=== PATIENT | male | born 1940 | race African-American/Black ===

== ENCOUNTER 2016-09-16 19:03 | Emergency (ER) | payer MEDICARE, MEDICAID ==
[~2016-09-16] VITALS: Ht 172.7 cm; Wt 82.0 kg
[~2016-09-16 19:03] MED LIST: ALBU6.7H INH; AMLO10TA4 PO; BENA20TA3 PO; HYDR-4005 PO; PROT20 PO
[2016-09-16 19:34] VITALS: BP 142/72
[2016-09-16 20:15] LABS: BASOPHILS % 0.6 % (0.0-2.0); EOSINOPHILS % 1.4 % (0.0-5.0); HEMATOCRIT. 35.2 % (42.0-52.0); HEMOGLOBIN. 11.8 g/dL (14.0-18.0); LYMPHOCYTES % 49.4 % (20.0-50.0); MEAN CORPUSCULAR HEMOGLOBIN 30.1 pg (28.0-32.0); MEAN CORPUSCULAR HGB CONC 33.5 g/dL (31.0-37.0); MEAN CORPUSCULAR VOLUME 89.9 fL (80.0-94.0); MEAN PLATELET VOLUME 7.6 fl (7.4-10.4); MONOCYTES % 9.7 % (2.0-8.0); NEUTROPHILS % 38.9 % (40.0-76.0); PLATELET 202 x1000/uL (130-400); RED BLOOD CELL COUNT 3.92 mill/uL (4.7-6.1); RED CELL DISTRIBUTION WIDTH 15.2 % (11.6-14.6); WHITE BLOOD COUNT 8.6 x1000/uL (4.5-11.0)
[2016-09-16 20:44] LABS: CLARITY URINE CLEAR (CLEAR); COLOR URINE YELLOW (YELLOW); GLUCOSE URINE NEGATIVE (NEGATIVE); KETONES URINE NEGATIVE (NEGATIVE); LEUKOCYTE ESTERASE URINE TRACE (NEGATIVE); NITRITE URINE NEGATIVE (NEGATIVE); OCCULT BLOOD URINE NEGATIVE (NEGATIVE); PH URINE 6.5 (4.5-8.0); PROTEIN URINE NEGATIVE (NEGATIVE); SPECIFIC GRAVITY URINE 1.014 (1.005-1.030); UROBILINOGEN URINE 0.2 E.U./dL (0.2-1.0)
[2016-09-16 20:55] LABS: BACTERIA URINE TRACE; RBC URINE NONE SEEN /hpf (0-2); SQUAMOUS EPITHELIAL CELL URINE RARE /lpf (RARE/1+); WBC URINE 0-2 /hpf (0-2)
== END 2016-09-16 22:15 | disposition home or self-care (01) ==
LOC: ER 21:43
DX: J44.1 Chronic obstructive pulmonary disease with (acute) exacerbation (principal); I10 Essential (primary) hypertension; Z79.899 Other long term (current) drug therapy; Z87.01 Personal history of pneumonia (recurrent)
CPT/HCPCS: 36415; 71020; 81001; 85025; 99285

== ENCOUNTER 2016-10-16 18:38 | Emergency (ER) | payer MEDICARE, MEDICAID | END 2016-10-16 20:50 | disposition left against medical advice (07) | LOC: ER 18:39 | DX: Z53.21 Procedure and treatment not carried out due to patient leaving prior to being seen by health care provider (principal) ==

== ENCOUNTER 2016-11-14 20:53 | Emergency (ER) | payer MEDICARE, MEDICAID ==
[~2016-11-14] VITALS: Ht 172.7 cm; Wt 84.0 kg
[2016-11-14] MEDS ORDERED: IBUPROFEN 600MG TABLET PO ONE (22:45)
[2016-11-14 23:18] LABS: CLARITY URINE CLEAR (CLEAR); COLOR URINE YELLOW (YELLOW); GLUCOSE URINE NEGATIVE (NEGATIVE); KETONES URINE NEGATIVE (NEGATIVE); LEUKOCYTE ESTERASE URINE TRACE (NEGATIVE); NITRITE URINE NEGATIVE (NEGATIVE); OCCULT BLOOD URINE NEGATIVE (NEGATIVE); PROTEIN URINE NEGATIVE (NEGATIVE); SPECIFIC GRAVITY URINE 1.013 (1.005-1.030); UROBILINOGEN URINE 0.2 E.U./dL (0.2-1.0)
[2016-11-15 00:55] VITALS: BP 154/79
== END 2016-11-15 01:01 | disposition home or self-care (01) ==
LOC: ER 11-15 00:29
DX: R30.0 Dysuria (principal); R10.30 Lower abdominal pain, unspecified; N40.0 Benign prostatic hyperplasia without lower urinary tract symptoms; J44.9 Chronic obstructive pulmonary disease, unspecified; I10 Essential (primary) hypertension; Z87.891 Personal history of nicotine dependence
CPT/HCPCS: 81001; 99283

== ENCOUNTER 2017-01-04 15:14 | Emergency (ER) | payer MEDICARE, MEDICAID ==
[~2017-01-04] VITALS: Ht 172.7 cm; Wt 75.0 kg
[2017-01-04] MEDS: ASPIRIN 81MG TABLET PO ONE (16:55)
[2017-01-04] MEDS: SODIUM CHLORIDE 0.9% 1000ML BAG (SEPSIS BOLUS) IV ONE (16:55)
[2017-01-04] MEDS: ONDANSETRON HCL 4MG/2ML VIAL IV STA (16:56)
[2017-01-04] MEDS: LEVOFLOXACIN 750MG PREMIX 150 ML IV ONE (16:57)
[2017-01-04 17:01] LABS: BASOPHILS % 0.6 % (0.0-2.0); EOSINOPHILS % 0.4 % (0.0-5.0); HEMATOCRIT. 33.1 % (42.0-52.0); LYMPHOCYTES % 44.4 % (20.0-50.0); MEAN CORPUSCULAR HEMOGLOBIN 30.3 pg (28.0-32.0); MEAN CORPUSCULAR VOLUME 90.9 fL (80.0-94.0); MEAN PLATELET VOLUME 7.1 fl (7.4-10.4); MONOCYTES % 9.8 % (2.0-8.0); NEUTROPHILS % 44.8 % (40.0-76.0); PLATELET 240 x1000/uL (130-400); RED BLOOD CELL COUNT 3.64 mill/uL (4.7-6.1); RED CELL DISTRIBUTION WIDTH 14.7 % (11.6-14.6)
[2017-01-04 17:04] LABS: CHLORIDE 99 mEq/L (98-107)
[2017-01-04 17:07] LABS: INR 1.1; PARTIAL THROMBOPLASTIN TIME 25.6 sec (24.0-34.0)
[2017-01-04 17:13] LABS: CARBON DIOXIDE 30 mEq/L (21-32)
[2017-01-04 17:15] LABS: TROPONIN I 0.04 ng/mL (0.00-0.04)
[2017-01-04 18:45] LABS: CLARITY URINE CLEAR (CLEAR); COLOR URINE YELLOW (YELLOW); GLUCOSE URINE NEGATIVE (NEGATIVE); KETONES URINE NEGATIVE (NEGATIVE); LEUKOCYTE ESTERASE URINE NEGATIVE (NEGATIVE); NITRITE URINE NEGATIVE (NEGATIVE); OCCULT BLOOD URINE NEGATIVE (NEGATIVE); PROTEIN URINE NEGATIVE (NEGATIVE); SPECIFIC GRAVITY URINE 1.008 (1.005-1.030); UROBILINOGEN URINE 0.2 E.U./dL (0.2-1.0)
[2017-01-04 21:45] VITALS: BP 146/76
== END 2017-01-04 22:35 | disposition home or self-care (01) ==
LOC: ER 15:59 → CANBEDREQ 23:10
DX: R68.83 Chills (without fever) (principal); R53.1 Weakness; I10 Essential (primary) hypertension; E78.00 Pure hypercholesterolemia, unspecified; J44.9 Chronic obstructive pulmonary disease, unspecified; Z87.01 Personal history of pneumonia (recurrent)
CPT/HCPCS: 36415; 71010; 80053; 81003; 83605; 84484; 85025; 85610; 85730; 86850; 86900; 86901; 87040; 87086; 93005; 96365; 96375; 99285; J1956; J2405; J7030

== ENCOUNTER 2017-01-25 15:30 | Inpatient (IN) | payer MEDICARE, MEDICAID ==
[~2017-01-25] VITALS: Ht 172.7 cm; Wt 76.7 kg
[2017-01-25] MEDS ORDERED: ONDANSETRON HCL 4MG/2ML VIAL IV STA (17:00)
[2017-01-25] MEDS ORDERED: MORPHINE SULFATE 4 MG/ML CPJ (NOT FOR IM USE) IV STA (17:00)
[2017-01-25] MEDS ORDERED: SODIUM CHLORIDE 0.9% 1,000 ML IV ONE (17:00)
[2017-01-25] MEDS ORDERED: SODIUM CHLORIDE 0.9% 1000ML BAG (SEPSIS BOLUS) IV ONE (17:15)
[2017-01-25] MEDS ORDERED: CEFTRIAXONE 1 G PREMIX 50 ML IV ONE (17:15)
[2017-01-25 17:23] LABS: CHLORIDE 103 mEq/L (98-107)
[2017-01-25 17:26] LABS: BASOPHILS % 0.6 % (0.0-2.0); CARBON DIOXIDE 31 mEq/L (21-32); EOSINOPHILS % 1.2 % (0.0-5.0); HEMATOCRIT. 32.3 % (42.0-52.0); HEMOGLOBIN. 10.9 g/dL (14.0-18.0); LYMPHOCYTES % 38.9 % (20.0-50.0); MEAN CORPUSCULAR HEMOGLOBIN 30.6 pg (28.0-32.0); MEAN CORPUSCULAR VOLUME 90.6 fL (80.0-94.0); MEAN PLATELET VOLUME 7.1 fl (7.4-10.4); MONOCYTES % 11.4 % (2.0-8.0); NEUTROPHILS % 47.9 % (40.0-76.0); PLATELET 209 x1000/uL (130-400); RED BLOOD CELL COUNT 3.56 mill/uL (4.7-6.1); RED CELL DISTRIBUTION WIDTH 15.2 % (11.6-14.6)
[2017-01-25 20:31] LABS: CLARITY URINE CLEAR (CLEAR); COLOR URINE YELLOW (YELLOW); GLUCOSE URINE NEGATIVE (NEGATIVE); KETONES URINE NEGATIVE (NEGATIVE); LEUKOCYTE ESTERASE URINE TRACE (NEGATIVE); NITRITE URINE NEGATIVE (NEGATIVE); OCCULT BLOOD URINE NEGATIVE (NEGATIVE); PROTEIN URINE NEGATIVE (NEGATIVE); SPECIFIC GRAVITY URINE 1.016 (1.005-1.030)
[2017-01-25] MEDS ORDERED: CEFTRIAXONE SODIUM 1 G/VIAL IM ONE (22:00)
[2017-01-25] MEDS ORDERED: LIDOCAINE HCL 1% 20ML VIAL (Pyxis) INJ ONE (23:22)
[2017-01-25] MEDS ORDERED: IPRATROPIUM/ALBUTEROL 0.5-3(2.5)MG/3ML NEB INH PRN (23:30)
[2017-01-25] MEDS ORDERED: ACETAMINOPHEN 325MG TABLET PO PRN (23:30)
[2017-01-25] MEDS ORDERED: ONDANSETRON HCL 4MG/2ML VIAL IV PRN (23:30)
[2017-01-25] MEDS ORDERED: CLONIDINE 0.1MG TABLET PO PRN (23:30)
[2017-01-25] MEDS ORDERED: LORAZEPAM 0.5MG TABLET PO PRN (23:30)
[2017-01-25] MEDS ORDERED: GUAIFENESIN 200MG/10ML SUGAR FREE UDC PO PRN (23:30)
[2017-01-25] MEDS ORDERED: DOCUSATE SODIUM 100MG CAPSULE PO PRN (23:30)
[2017-01-26] VITALS (7 sets, daily range): BP systolic 132–152; BP diastolic 68–81
[2017-01-26] MEDS ORDERED: LOSA1TAB33 PO (00:35)
[2017-01-26] MEDS ORDERED: MELO-106 PO (00:35)
[2017-01-26] MEDS: HYDROCODONE/APAP 7.5/325MG 1 TAB TABLET PO PRN ×4 (01:10→23:28)
[2017-01-26] MEDS ORDERED: MVI, ADULT NO.1 10 ML, FOLIC ACID 1 MG, THIAMINE HCL 100 MG in SODIUM CHLORIDE 0.9% 1,0... IV SCH ×4 (02:00)
[2017-01-26 03:07] LABS: VITAMIN B12 SERUM 1364 pg/mL (211-911)
[2017-01-26] MEDS ORDERED: TAMS-11 PO (04:48)
[2017-01-26 06:18] LABS: BASOPHILS % 0.3 % (0.0-2.0); EOSINOPHILS % 2.2 % (0.0-5.0); HEMOGLOBIN. 10.8 g/dL (14.0-18.0); LYMPHOCYTES % 43.8 % (20.0-50.0); MEAN CORPUSCULAR HEMOGLOBIN 30.7 pg (28.0-32.0); MEAN CORPUSCULAR VOLUME 91.4 fL (80.0-94.0); MEAN PLATELET VOLUME 7.4 fl (7.4-10.4); MONOCYTES % 11.8 % (2.0-8.0); NEUTROPHILS % 41.9 % (40.0-76.0); PLATELET 197 x1000/uL (130-400); RED CELL DISTRIBUTION WIDTH 15.6 % (11.6-14.6)
[2017-01-26] MEDS: PANTOPRAZOLE 40MG DR TABLET PO SCH (06:33)
[2017-01-26 07:01] LABS: CHLORIDE 105 mEq/L (98-107)
[2017-01-26 07:08] LABS: CARBON DIOXIDE 30 mEq/L (21-32)
[2017-01-26] MEDS ORDERED: LIDOCAINE HCL 1% 20ML VIAL (Pyxis) INJ ONE (07:41)
[2017-01-26] MEDS ORDERED: SODIUM BICARBONATE 4% (2.4MEQ) 5ML VIAL IV ONE (07:41)
[2017-01-26] MEDS: HYDROCHLOROTHIAZIDE 12.5MG CAPSULE PO SCH (08:29)
[2017-01-26] MEDS: TAMSULOSIN HCL 0.4MG SR CAPSULE PO SCH (08:29)
[2017-01-26] MEDS: LOSARTAN POTASSIUM 100 MG TABLET PO SCH (08:30)
[2017-01-26] MEDS: MELOXICAM 7.5MG TABLET PO SCH (08:30)
[2017-01-26] MEDS: BENAZEPRIL 20MG TABLET PO SCH (08:30)
[2017-01-26] MEDS: AMLODIPINE 10MG TABLET PO SCH (08:30)
[2017-01-26] MEDS ORDERED: PANTOPRAZOLE SODIUM 20 MG PO SCH (09:00)
[2017-01-26] MEDS ORDERED: MEDICATION NOT ON FORMULARY EA (Meloxicam 1 TAB) PO SCH (09:00)
[2017-01-26] MEDS: CEFTRIAXONE 1 G PREMIX 50 ML IV SCH (22:34)
[2017-01-27] VITALS: BP 133/70
[2017-01-27 04:00] VITALS: BP 123/79
[2017-01-27] MEDS: PANTOPRAZOLE 40MG DR TABLET PO SCH (05:59)
[2017-01-27] MEDS: HYDROCODONE/APAP 7.5/325MG 1 TAB TABLET PO PRN ×4 (06:00→20:28)
[2017-01-27 08:00] VITALS: BP 127/71
[2017-01-27] MEDS: MELOXICAM 7.5MG TABLET PO SCH (08:01)
[2017-01-27] MEDS: BENAZEPRIL 20MG TABLET PO SCH (08:01)
[2017-01-27] MEDS: LOSARTAN POTASSIUM 100 MG TABLET PO SCH (08:01)
[2017-01-27] MEDS: HYDROCHLOROTHIAZIDE 12.5MG CAPSULE PO SCH (08:02)
[2017-01-27] MEDS: AMLODIPINE 10MG TABLET PO SCH (08:02)
[2017-01-27] MEDS: TAMSULOSIN HCL 0.4MG SR CAPSULE PO SCH (08:02)
[2017-01-27 12:00] VITALS: BP 132/72
[2017-01-27 15:59] VITALS: BP 139/79
[2017-01-27 20:00] VITALS: BP 127/77
[2017-01-28] VITALS: BP 121/65
[2017-01-28] MEDS: HYDROCODONE/APAP 7.5/325MG 1 TAB TABLET PO PRN ×3 (01:18→12:09)
[2017-01-28] MEDS: CEFTRIAXONE 1 G PREMIX 50 ML IV SCH (01:30)
[2017-01-28 04:00] VITALS: BP 139/73
[2017-01-28] MEDS: PANTOPRAZOLE 40MG DR TABLET PO SCH (06:59)
[2017-01-28 08:00] VITALS: BP 138/76
[2017-01-28] MEDS: TAMSULOSIN HCL 0.4MG SR CAPSULE PO SCH (08:47)
[2017-01-28] MEDS: HYDROCHLOROTHIAZIDE 12.5MG CAPSULE PO SCH (08:47)
[2017-01-28] MEDS: BENAZEPRIL 20MG TABLET PO SCH (08:47)
[2017-01-28] MEDS: LOSARTAN POTASSIUM 100 MG TABLET PO SCH (08:47)
[2017-01-28] MEDS: MELOXICAM 7.5MG TABLET PO SCH (08:48)
[2017-01-28] MEDS: AMLODIPINE 10MG TABLET PO SCH (08:48)
[2017-01-28 12:00] VITALS: BP 140/82
[2017-01-28 14:04] VITALS: BP 140/82
== END 2017-01-28 14:20 | disposition home or self-care (01) | DRG 690 ==
LOC: ER 18:12 → 6EST 22:05 → ENRESERV 22:22 → 6EST 01-26 03:24
PROVIDERS: ADMIT Internal Medicine; ATTEND Internal Medicine
PROC: 02HV33Z Insertion of Infusion Device into Superior Vena Cava, Percutaneous Approach (ICD-10-PCS; principal; 2017-01-26)
PROC: B5181ZA Fluoroscopy of Superior Vena Cava using Low Osmolar Contrast, Guidance (ICD-10-PCS; 2017-01-26)
PROC: B548ZZA Ultrasonography of Superior Vena Cava, Guidance (ICD-10-PCS; 2017-01-26)
DX: N30.00 Acute cystitis without hematuria (principal); I11.0 Hypertensive heart disease with heart failure; I42.9 Cardiomyopathy, unspecified; I50.9 Heart failure, unspecified; D64.9 Anemia, unspecified; F41.9 Anxiety disorder, unspecified; G89.29 Other chronic pain; J44.9 Chronic obstructive pulmonary disease, unspecified; K29.50 Unspecified chronic gastritis without bleeding; M47.897 Other spondylosis, lumbosacral region; M54.5 Low back pain; E78.00 Pure hypercholesterolemia, unspecified; Z87.01 Personal history of pneumonia (recurrent); Z87.891 Personal history of nicotine dependence; Z99.81 Dependence on supplemental oxygen; Z79.899 Other long term (current) drug therapy; Z85.51 Personal history of malignant neoplasm of bladder
CPT/HCPCS: 36415; 36569; 70551; 71010; 74176; 76937; 77001; 80053; 81001; 82040; 82270; 82607; 82652; 83605; 83690; 84484; 85025; 87040; 87086; 93005; 94664; 96365; 96372; 96375; 99285; C1725; C1893; J0696; J2270; J2405; J3411; J3490; J7030; J7050; J7620

== ENCOUNTER 2017-12-02 11:50 | Emergency (ER) | payer MEDICARE, MEDICAID ==
[~2017-12-02] VITALS: Ht 170.2 cm; Wt 80.0 kg
[~2017-12-02 11:50] MED LIST changes: +BENA20TA10 PO; -BENA20TA3 PO; +LOSA1TAB40 PO; +MELO-106 PO; +TAMS-11 PO
[2017-12-02 15:06] LABS: CLARITY URINE CLEAR (CLEAR); COLOR URINE YELLOW (YELLOW); KETONES URINE NEGATIVE (NEGATIVE); LEUKOCYTE ESTERASE URINE NEGATIVE (NEGATIVE); NITRITE URINE NEGATIVE (NEGATIVE); OCCULT BLOOD URINE NEGATIVE (NEGATIVE); PH URINE 5.5 (4.5-8.0); PROTEIN URINE 1+ (NEGATIVE); SPECIFIC GRAVITY URINE 1.015 (1.005-1.030); UROBILINOGEN URINE 0.2 E.U./dL (0.2-1.0)
[2017-12-02 15:19] LABS: *AMPHETAMINES SCREEN URINE NEGATIVE (NEGATIVE); *BARBITURATES SCREEN URINE NEGATIVE (NEGATIVE)
[2017-12-02 15:20] LABS: *BENZODIAZEPINES SCREEN URINE NEGATIVE (NEGATIVE); *COCAINE SCREEN URINE NEGATIVE (NEGATIVE); CANNABINOID URINE SCREEN NEGATIVE (NEGATIVE); METHADONE URINE SCREEN NEGATIVE (NEGATIVE); OPIATES URINE SCREEN PRESUMTIVE POSITIVE (NEGATIVE); PHENCYCLIDINE URINE SCREEN NEGATIVE (NEGATIVE)
[2017-12-02 17:10] LABS: BASOPHILS % 0.6 % (0.0-2.0); EOSINOPHILS % 1.6 % (0.0-5.0); HEMATOCRIT. 33.6 % (42.0-52.0); HEMOGLOBIN. 11.3 g/dL (14.0-18.0); LYMPHOCYTES % 34.8 % (20.0-50.0); MEAN CORPUSCULAR HEMOGLOBIN 30.8 pg (28.0-32.0); MEAN CORPUSCULAR VOLUME 91.1 fL (80.0-94.0); MEAN PLATELET VOLUME 7.6 fl (7.4-10.4); MONOCYTES % 9.2 % (2.0-8.0); NEUTROPHILS % 53.8 % (40.0-76.0); PLATELET 226 x1000/uL (130-400); RED BLOOD CELL COUNT 3.68 mill/uL (4.7-6.1)
[2017-12-02 17:15] LABS: CHLORIDE 100 mEq/L (98-107)
[2017-12-02] MEDS ORDERED: ACETAMINOPHEN 325MG TABLET PO ONE (17:15)
[2017-12-02 17:16] LABS: INR 1.1; PROTHROMBIN TIME 11.1 sec (9.4-11.6)
[2017-12-02] MEDS ORDERED: HYDROCODONE/ACETAMINOPHEN 5/325MG TABLET PO ONE (20:30)
[2017-12-03] MEDS ORDERED: IPRATROPIUM/ALBUTEROL 0.5-3(2.5)MG/3ML NEB HHN SCH (09:00)
[2017-12-03] MEDS ORDERED: HYDROCODONE/ACETAMINOPHEN 5/325MG TABLET PO PRN (09:01)
[2017-12-03 11:03] VITALS: BP 163/70
== END 2017-12-03 11:06 | disposition home or self-care (01) ==
LOC: ER 13:01 → SUPCPDRO 22:11 → CANRESERV 12-03 09:16 → ENRESERV 12-03 09:16 → CANBEDREQ 12-03 10:14 → ER 12-03 11:06
DX: J44.1 Chronic obstructive pulmonary disease with (acute) exacerbation (principal); I11.0 Hypertensive heart disease with heart failure; N40.1 Benign prostatic hyperplasia with lower urinary tract symptoms; R07.89 Other chest pain; R33.8 Other retention of urine; I50.9 Heart failure, unspecified; E86.0 Dehydration; D64.9 Anemia, unspecified; R80.9 Proteinuria, unspecified; R74.0 Nonspecific elevation of levels of transaminase and lactic acid dehydrogenase [LDH]; F11.10 Opioid abuse, uncomplicated; Z99.81 Dependence on supplemental oxygen; Z79.899 Other long term (current) drug therapy
CPT/HCPCS: 36415; 51702; 71045; 80053; 80305; 81003; 83036; 83880; 84153; 84484; 85025; 85610; 87040; 87086; 93005; 94640; 99285; J7620; G0103

== ENCOUNTER 2017-12-16 05:11 | Emergency (ER) | payer MEDICARE, MEDICAID ==
[~2017-12-16] VITALS: Ht 172.7 cm; Wt 77.0 kg
[~2017-12-16 05:11] MED LIST changes: -BENA20TA10 PO; +BENA20TA3 PO
[2017-12-16] MEDS ORDERED: CLONIDINE 0.1MG TABLET PO ONE (07:00)
[2017-12-16] MEDS ORDERED: KETOROLAC 60MG/2ML VIAL IM ONE (07:00)
[2017-12-16] MEDS ORDERED: ACETAMINOPHEN 325MG TABLET PO ONE (07:00)
[2017-12-16 07:29] VITALS: BP 162/78
== END 2017-12-16 08:47 | disposition home or self-care (01) ==
LOC: ER 05:57
DX: F11.23 Opioid dependence with withdrawal (principal); M19.90 Unspecified osteoarthritis, unspecified site; M79.604 Pain in right leg; M79.605 Pain in left leg; J44.9 Chronic obstructive pulmonary disease, unspecified; I10 Essential (primary) hypertension; E78.00 Pure hypercholesterolemia, unspecified; Z87.891 Personal history of nicotine dependence; Z98.890 Other specified postprocedural states; Z79.899 Other long term (current) drug therapy
CPT/HCPCS: 96372; 99283; J1885; J7030

== ENCOUNTER → 2018-02-01 | Outpatient (CLI) | payer MEDICARE, MEDICAID ==
[~2018-02-01] MED LIST changes: +BENA20TA10 PO; -BENA20TA3 PO
[2018-02-01 09:01] LABS: BASOPHILS % 0.4 % (0.0-2.0); EOSINOPHILS % 2.3 % (0.0-5.0); HEMOGLOBIN. 12.4 g/dL (14.0-18.0); MEAN CORPUSCULAR HEMOGLOBIN 30.3 pg (28.0-32.0); MEAN CORPUSCULAR VOLUME 92.7 fL (80.0-94.0); MEAN PLATELET VOLUME 7.9 fl (7.4-10.4); MONOCYTES % 8.5 % (2.0-8.0); NEUTROPHILS % 41.8 % (40.0-76.0); PLATELET 227 x1000/uL (130-400); RED CELL DISTRIBUTION WIDTH 16.5 % (11.6-14.6)
[2018-02-01 09:24] LABS: CHLORIDE 100 mEq/L (98-107)
[2018-02-01 09:34] LABS: LDL CHOLESTEROL 129 mg/dL (5-100)
[2018-02-01 09:36] LABS: HDL CHOLESTEROL 74 mg/dL (40-59)
[2018-02-01 10:25] LABS: VITAMIN B12 SERUM 1248 pg/mL (211-911)
[2018-02-01 10:30] LABS: FOLIC ACID (FOLATE) SERUM > 20.00 ng/mL (>5.38)
[2018-02-01 13:47] LABS: FERRITIN 86 ng/mL (22-322)
== END | disposition home or self-care (01) ==
LOC: LAB 08:03
PROVIDERS: ATTEND Specialist
DX: I11.0 Hypertensive heart disease with heart failure (principal); I50.9 Heart failure, unspecified; E55.9 Vitamin D deficiency, unspecified; E78.2 Mixed hyperlipidemia; J44.9 Chronic obstructive pulmonary disease, unspecified; E78.00 Pure hypercholesterolemia, unspecified; Z79.899 Other long term (current) drug therapy
CPT/HCPCS: 36415; 80053; 80061; 82306; 82607; 82728; 82746; 83036; 85025

== ENCOUNTER → 2018-05-17 | Outpatient (CLI) | payer MEDICARE, MEDICAID ==
[2018-05-17 09:50] LABS: BASOPHILS % 0.4 % (0.0-2.0); EOSINOPHILS % 1.8 % (0.0-5.0); HEMATOCRIT. 40.1 % (42.0-52.0); LYMPHOCYTES % 55.8 % (20.0-50.0); MEAN CORPUSCULAR HEMOGLOBIN 29.9 pg (28.0-32.0); MEAN CORPUSCULAR VOLUME 92.2 fL (80.0-94.0); MEAN PLATELET VOLUME 7.8 fl (7.4-10.4); MONOCYTES % 8.2 % (2.0-8.0); NEUTROPHILS % 33.8 % (40.0-76.0); PLATELET 186 x1000/uL (130-400); RED BLOOD CELL COUNT 4.35 mill/uL (4.7-6.1)
[2018-05-17 11:02] LABS: CHLORIDE 102 mEq/L (98-107)
[2018-05-17 11:09] LABS: LDL CHOLESTEROL 134 mg/dL (5-100)
[2018-05-17 11:11] LABS: HDL CHOLESTEROL 76 mg/dL (40-59); T4 FREE 1.08 ng/dL (0.76-1.46)
[2018-05-17 11:18] LABS: FOLIC ACID (FOLATE) SERUM >20 ng/mL ng/mL (>5.38)
[2018-05-17 11:53] LABS: VITAMIN B12 SERUM 1208 pg/mL (211-911)
[2018-05-17 15:48] LABS: FERRITIN 79 ng/mL (22-322)
== END | disposition home or self-care (01) ==
LOC: LAB 05-10 08:24
PROVIDERS: ATTEND Specialist
DX: I11.0 Hypertensive heart disease with heart failure (principal); I50.9 Heart failure, unspecified; I42.9 Cardiomyopathy, unspecified; E78.2 Mixed hyperlipidemia; E55.9 Vitamin D deficiency, unspecified; M19.90 Unspecified osteoarthritis, unspecified site; J44.9 Chronic obstructive pulmonary disease, unspecified; Z79.899 Other long term (current) drug therapy
CPT/HCPCS: 36415; 80061; 82306; 82607; 82728; 82746; 83036; 84439; 84443; 84481

== ENCOUNTER 2018-06-13 12:30 | Inpatient (IN) | payer MEDICARE, MEDICAID ==
[~2018-06-13] VITALS: Ht 172.7 cm; Wt 85.7 kg
[2018-06-13] MEDS ORDERED: ALBUTEROL (0.083%) 2.5MG/3ML NEB HHN STA (13:11)
[2018-06-13] MEDS ORDERED: IPRATROPIUM BROMIDE (0.02%) 0.5MG/2.5ML NEB HHN STA (13:11)
[2018-06-13] MEDS ORDERED: METHYLPREDNISOLONE SOD SUCC 125 MG/2 ML VIAL IV STA (13:11)
[2018-06-13] MEDS ORDERED: ASPIRIN 81MG TABLET PO ONE (13:15)
[2018-06-13] MEDS ORDERED: ALBUTEROL (0.5%) 2.5MG/0.5ML NEB HHN ONE (13:29)
[2018-06-13] MEDS ORDERED: ALBUTEROL (0.083%) 2.5MG/3ML NEB ONE (13:29)
[2018-06-13] MEDS ORDERED: PREDNISONE 20MG TABLET PO ONE (13:45)
[2018-06-13 14:45] LABS: BASOPHILS % 0.8 % (0.0-2.0); EOSINOPHILS % 1.2 % (0.0-5.0); HEMATOCRIT. 33.7 % (42.0-52.0); HEMOGLOBIN. 11.1 g/dL (14.0-18.0); LYMPHOCYTES % 58.3 % (20.0-50.0); MEAN CORPUSCULAR HEMOGLOBIN 30.1 pg (28.0-32.0); MEAN CORPUSCULAR VOLUME 91.4 fL (80.0-94.0); MEAN PLATELET VOLUME 8.9 fl (7.4-10.4); MONOCYTES % 8.2 % (2.0-8.0); NEUTROPHILS % 31.5 % (40.0-76.0); PLATELET 234 x1000/uL (130-400); RED BLOOD CELL COUNT 3.69 mill/uL (4.7-6.1)
[2018-06-13 14:50] LABS: CHLORIDE 103 mEq/L (98-107)
[2018-06-13] MEDS ORDERED: DOCUSATE SODIUM 100MG CAPSULE PO PRN (22:15)
[2018-06-13] MEDS ORDERED: GUAIFENESIN 200MG/10ML SUGAR FREE UDC PO PRN (22:15)
[2018-06-13] MEDS ORDERED: LORAZEPAM 0.5MG TABLET PO PRN (22:15)
[2018-06-13] MEDS ORDERED: IPRATROPIUM/ALBUTEROL 0.5-3(2.5)MG/3ML NEB INH PRN (22:15)
[2018-06-13] MEDS ORDERED: CLONIDINE 0.1MG TABLET PO PRN (22:15)
[2018-06-13] MEDS ORDERED: ONDANSETRON HCL 4MG/2ML INJ IV PRN (22:15)
[2018-06-14] VITALS: BP 177/85
[2018-06-14 00:45] VITALS: BP 146/76
[2018-06-14] MEDS: PANTOPRAZOLE 40MG DR TABLET PO SCH (06:57)
[2018-06-14] MEDS: ACETAMINOPHEN 325MG TABLET PO PRN ×2 (07:01→22:19)
[2018-06-14 07:25] LABS: BASOPHILS % 0.1 % (0.0-2.0); HEMATOCRIT. 35.4 % (42.0-52.0); HEMOGLOBIN. 11.6 g/dL (14.0-18.0); LYMPHOCYTES % 31.1 % (20.0-50.0); MEAN CORPUSCULAR HEMOGLOBIN 29.7 pg (28.0-32.0); MEAN CORPUSCULAR VOLUME 90.2 fL (80.0-94.0); MEAN PLATELET VOLUME 8.5 fl (7.4-10.4); MONOCYTES % 4.6 % (2.0-8.0); NEUTROPHILS % 64.2 % (40.0-76.0); PLATELET 186 x1000/uL (130-400); RED BLOOD CELL COUNT 3.92 mill/uL (4.7-6.1); RED CELL DISTRIBUTION WIDTH 17.3 % (11.6-14.6)
[2018-06-14 08:00] VITALS: BP 169/79
[2018-06-14 08:00] LABS: CHLORIDE 107 mEq/L (98-107)
[2018-06-14] MEDS ORDERED: AMLODIPINE 10MG TABLET PO SCH (09:00)
[2018-06-14] MEDS ORDERED: PANTOPRAZOLE 40MG DR TABLET PO SCH (09:00)
[2018-06-14] MEDS: BENAZEPRIL 10MG TABLET PO SCH (09:45)
[2018-06-14] MEDS: TAMSULOSIN HCL 0.4MG SR CAPSULE PO SCH (09:45)
[2018-06-14] MEDS: MELOXICAM 7.5MG TABLET PO SCH (09:45)
[2018-06-14] MEDS: ENOXAPARIN 40MG/0.4ML SYR SUBCUT SCH (09:46)
[2018-06-14] MEDS ORDERED: IPRATROPIUM/ALBUTEROL 0.5-3(2.5)MG/3ML NEB HHN SCH (12:00)
[2018-06-14 12:01] VITALS: BP 147/71
[2018-06-14] MEDS: ASPIRIN 325MG EC TABLET PO SCH (12:47)
[2018-06-14] MEDS: DILTIAZEM HCL 60MG TABLET PO SCH ×2 (12:48→18:34)
[2018-06-14 16:00] VITALS: BP 141/67
[2018-06-14 20:00] VITALS: BP 140/69
[2018-06-14] MEDS ORDERED: IPRATROPIUM/ALBUTEROL 0.5-3(2.5)MG/3ML NEB HHN PRN (21:30)
[2018-06-14] MEDS ORDERED: HYDROCODONE/ACETAMINOPHEN 5/325MG TABLET PO PRN (21:45)
[2018-06-14] MEDS: METHYLPREDNISOLONE SOD SUCC 40 MG/ML VIAL IV SCH (22:19)
[2018-06-14] MEDS: GABAPENTIN 400MG CAPSULE PO SCH (22:19)
[2018-06-15] VITALS: BP 121/56
[2018-06-15] MEDS: IPRATROPIUM/ALBUTEROL 0.5-3(2.5)MG/3ML NEB HHN SCH ×6 (00:35→22:05)
[2018-06-15] MEDS: DILTIAZEM HCL 60MG TABLET PO SCH ×5 (03:58→22:55)
[2018-06-15 04:00] VITALS: BP 117/50
[2018-06-15] MEDS: GABAPENTIN 400MG CAPSULE PO SCH ×3 (06:48→22:54)
[2018-06-15] MEDS: PANTOPRAZOLE 40MG DR TABLET PO SCH (06:49)
[2018-06-15 07:05] LABS: BASOPHILS % 0.1 % (0.0-2.0); HEMOGLOBIN. 11.9 g/dL (14.0-18.0); LYMPHOCYTES % 15.7 % (20.0-50.0); MEAN CORPUSCULAR HEMOGLOBIN 29.8 pg (28.0-32.0); MEAN CORPUSCULAR VOLUME 90.3 fL (80.0-94.0); MEAN PLATELET VOLUME 8.4 fl (7.4-10.4); MONOCYTES % 1.2 % (2.0-8.0); PLATELET 188 x1000/uL (130-400); RED BLOOD CELL COUNT 3.99 mill/uL (4.7-6.1); RED CELL DISTRIBUTION WIDTH 17.1 % (11.6-14.6)
[2018-06-15 08:17] VITALS: BP 137/65
[2018-06-15 08:24] LABS: PHOSPHORUS 3.5 mg/dL (2.5-4.9)
[2018-06-15] MEDS: BENAZEPRIL 10MG TABLET PO SCH (08:43)
[2018-06-15] MEDS: ASPIRIN 325MG EC TABLET PO SCH (08:43)
[2018-06-15] MEDS: MELOXICAM 7.5MG TABLET PO SCH (08:43)
[2018-06-15] MEDS: ENOXAPARIN 40MG/0.4ML SYR SUBCUT SCH (08:44)
[2018-06-15] MEDS: TAMSULOSIN HCL 0.4MG SR CAPSULE PO SCH (08:44)
[2018-06-15] MEDS: METHYLPREDNISOLONE SOD SUCC 40 MG/ML VIAL IV SCH ×2 (08:44→22:54)
[2018-06-15 11:45] VITALS: BP 127/88
[2018-06-15 16:28] VITALS: BP 143/68
[2018-06-15 20:00] VITALS: BP 169/80
[2018-06-16] VITALS: BP 150/72
[2018-06-16] MEDS: IPRATROPIUM/ALBUTEROL 0.5-3(2.5)MG/3ML NEB HHN SCH ×6 (01:16→21:34)
[2018-06-16 04:00] VITALS: BP 119/49
[2018-06-16] MEDS: GABAPENTIN 400MG CAPSULE PO SCH ×3 (06:15→19:57)
[2018-06-16] MEDS: DILTIAZEM HCL 60MG TABLET PO SCH ×4 (06:15→22:46)
[2018-06-16] MEDS: PANTOPRAZOLE 40MG DR TABLET PO SCH (06:15)
[2018-06-16 07:38] LABS: BASOPHILS % 0.1 % (0.0-2.0); HEMATOCRIT. 32.9 % (42.0-52.0); HEMOGLOBIN. 10.8 g/dL (14.0-18.0); LYMPHOCYTES % 11.2 % (20.0-50.0); MEAN CORPUSCULAR HEMOGLOBIN 29.8 pg (28.0-32.0); MEAN CORPUSCULAR VOLUME 91.3 fL (80.0-94.0); MEAN PLATELET VOLUME 8.4 fl (7.4-10.4); MONOCYTES % 3.7 % (2.0-8.0); PLATELET 180 x1000/uL (130-400); RED BLOOD CELL COUNT 3.61 mill/uL (4.7-6.1)
[2018-06-16 08:00] VITALS: BP 122/57
[2018-06-16] MEDS: MELOXICAM 7.5MG TABLET PO SCH (10:08)
[2018-06-16] MEDS: ASPIRIN 325MG EC TABLET PO SCH (10:09)
[2018-06-16] MEDS: TAMSULOSIN HCL 0.4MG SR CAPSULE PO SCH (10:09)
[2018-06-16] MEDS: ENOXAPARIN 40MG/0.4ML SYR SUBCUT SCH (10:09)
[2018-06-16] MEDS: METHYLPREDNISOLONE SOD SUCC 40 MG/ML VIAL IV SCH ×2 (10:12→19:57)
[2018-06-16] MEDS: BENAZEPRIL 10MG TABLET PO SCH (10:59)
[2018-06-16 12:29] VITALS: BP 125/49
[2018-06-16] MEDS: MAGNESIUM CITRATE 300ML SOLUTION PO SCH ×2 (14:30→15:11)
[2018-06-16 16:00] VITALS: BP 132/59
[2018-06-16 20:00] VITALS: BP 136/59
[2018-06-16] MEDS ORDERED: MAGNESIUM HYDROXIDE 400MG/5ML 30ML UDC PO SCH (22:00)
[2018-06-17] VITALS (8 sets, daily range): BP systolic 121–150; BP diastolic 56–72
[2018-06-17] MEDS: IPRATROPIUM/ALBUTEROL 0.5-3(2.5)MG/3ML NEB HHN SCH ×6 (00:37→19:48)
[2018-06-17] MEDS: DILTIAZEM HCL 60MG TABLET PO SCH ×4 (04:38→21:52)
[2018-06-17] MEDS: GABAPENTIN 400MG CAPSULE PO SCH ×3 (04:39→21:52)
[2018-06-17 07:59] LABS: BASOPHILS % 0.1 % (0.0-2.0); HEMATOCRIT. 34.1 % (42.0-52.0); HEMOGLOBIN. 11.1 g/dL (14.0-18.0); LYMPHOCYTES % 8.8 % (20.0-50.0); MEAN CORPUSCULAR HEMOGLOBIN 30.1 pg (28.0-32.0); MEAN CORPUSCULAR VOLUME 92.1 fL (80.0-94.0); MEAN PLATELET VOLUME 8.7 fl (7.4-10.4); MONOCYTES % 4.9 % (2.0-8.0); NEUTROPHILS % 86.2 % (40.0-76.0); PLATELET 188 x1000/uL (130-400); RED CELL DISTRIBUTION WIDTH 17.6 % (11.6-14.6)
[2018-06-17] MEDS: ENOXAPARIN 40MG/0.4ML SYR SUBCUT SCH (10:03)
[2018-06-17] MEDS: TAMSULOSIN HCL 0.4MG SR CAPSULE PO SCH (10:04)
[2018-06-17] MEDS: FAMOTIDINE 20MG TABLET PO SCH (10:04)
[2018-06-17] MEDS: SODIUM POLYSTYRENE SULFONATE 15 G/60 ML BOT PO PRN ×2 (10:54→19:18)
[2018-06-17] MEDS: METHYLPREDNISOLONE SOD SUCC 40 MG/ML VIAL IV SCH ×2 (14:29→21:53)
[2018-06-17] MEDS: CLONIDINE 0.1MG TABLET PO SCH ×2 (14:30→21:52)
[2018-06-18] VITALS (7 sets, daily range): BP systolic 119–141; BP diastolic 53–70
[2018-06-18] MEDS: IPRATROPIUM/ALBUTEROL 0.5-3(2.5)MG/3ML NEB HHN SCH ×6 (04:00→20:22)
[2018-06-18] MEDS: DILTIAZEM HCL 60MG TABLET PO SCH ×3 (05:40→18:37)
[2018-06-18] MEDS: CLONIDINE 0.1MG TABLET PO SCH ×3 (05:40→21:43)
[2018-06-18] MEDS: GABAPENTIN 400MG CAPSULE PO SCH ×3 (05:40→21:42)
[2018-06-18 07:03] LABS: HEMATOCRIT. 32.4 % (42.0-52.0); HEMOGLOBIN. 10.7 g/dL (14.0-18.0); LYMPHOCYTES % 8.3 % (20.0-50.0); MEAN CORPUSCULAR HEMOGLOBIN 30.3 pg (28.0-32.0); MEAN CORPUSCULAR VOLUME 91.6 fL (80.0-94.0); MEAN PLATELET VOLUME 8.5 fl (7.4-10.4); MONOCYTES % 5.2 % (2.0-8.0); NEUTROPHILS % 86.5 % (40.0-76.0); PLATELET 184 x1000/uL (130-400); RED BLOOD CELL COUNT 3.54 mill/uL (4.7-6.1); RED CELL DISTRIBUTION WIDTH 17.3 % (11.6-14.6)
[2018-06-18 07:22] LABS: PHOSPHORUS 4.9 mg/dL (2.5-4.9)
[2018-06-18] MEDS: ENOXAPARIN 40MG/0.4ML SYR SUBCUT SCH (09:24)
[2018-06-18] MEDS: ASPIRIN 81MG TABLET PO SCH (09:24)
[2018-06-18] MEDS: TAMSULOSIN HCL 0.4MG SR CAPSULE PO SCH (09:24)
[2018-06-18] MEDS: FAMOTIDINE 20MG TABLET PO SCH (09:24)
[2018-06-18] MEDS ORDERED: DEXT 5%/0.45% NACL 1000ML 1,000 ML IV SCH (11:30)
[2018-06-18] MEDS: METHYLPREDNISOLONE SOD SUCC 40 MG/ML VIAL IV SCH ×2 (12:17→21:42)
[2018-06-18 17:02] LABS: CLARITY URINE CLEAR (CLEAR); COLOR URINE YELLOW (YELLOW); KETONES URINE NEGATIVE (NEGATIVE); LEUKOCYTE ESTERASE URINE TRACE (NEGATIVE); NITRITE URINE NEGATIVE (NEGATIVE); OCCULT BLOOD URINE 2+ (NEGATIVE); PH URINE 5.5 (4.5-8.0); PROTEIN URINE NEGATIVE (NEGATIVE); SPECIFIC GRAVITY URINE 1.013 (1.005-1.030); UROBILINOGEN URINE 0.2 E.U./dL (0.2-1.0)
[2018-06-19] VITALS: BP 117/54
[2018-06-19] MEDS: IPRATROPIUM/ALBUTEROL 0.5-3(2.5)MG/3ML NEB HHN SCH ×6 (00:37→22:01)
[2018-06-19] MEDS: DILTIAZEM HCL 60MG TABLET PO SCH ×4 (01:11→21:58)
[2018-06-19 04:00] VITALS: BP 118/60
[2018-06-19] MEDS: CLONIDINE 0.1MG TABLET PO SCH ×3 (06:38→23:39)
[2018-06-19] MEDS: GABAPENTIN 400MG CAPSULE PO SCH ×3 (06:39→23:39)
[2018-06-19 08:00] VITALS: BP 130/56
[2018-06-19] MEDS: TAMSULOSIN HCL 0.4MG SR CAPSULE PO SCH (09:14)
[2018-06-19] MEDS: FAMOTIDINE 20MG TABLET PO SCH (09:14)
[2018-06-19] MEDS: ENOXAPARIN 40MG/0.4ML SYR SUBCUT SCH (09:14)
[2018-06-19] MEDS: ASPIRIN 81MG TABLET PO SCH (09:14)
[2018-06-19] MEDS: METHYLPREDNISOLONE SOD SUCC 40 MG/ML VIAL IV SCH ×2 (09:15→21:54)
[2018-06-19] MEDS ORDERED: LIDOCAINE HCL 1% 20ML VIAL (Pyxis) INJ ONE (09:42)
[2018-06-19] MEDS ORDERED: SODIUM BICARBONATE 4% (2.4MEQ) 5ML VIAL IV ONE (09:42)
[2018-06-19 12:00] VITALS: BP 116/50
[2018-06-19 16:29] VITALS: BP 135/50
[2018-06-19 20:00] VITALS: BP 118/52
[2018-06-20] VITALS: BP 123/52
[2018-06-20] MEDS: IPRATROPIUM/ALBUTEROL 0.5-3(2.5)MG/3ML NEB HHN SCH ×6 (01:31→21:16)
[2018-06-20 04:00] VITALS: BP 122/54
[2018-06-20] MEDS: DILTIAZEM HCL 60MG TABLET PO SCH ×4 (07:03→17:54)
[2018-06-20 07:25] LABS: A/G RATIO 0.8 (0.7-1.7); ALBUMIN 2.7 g/dL (2.9-4.4); ALPHA-1-GLOBULIN 0.2 g/dL (0.0-0.4); ALPHA-2-GLOBULIN 0.6 g/dL (0.4-1.0); BETA GLOBULIN 1.1 g/dL (0.7-1.3); GAMMA GLOBULINS 1.2 g/dL (0.4-1.8); GLOBULIN TOTAL 3.2 g/dL (2.2-3.9); M-SPIKE Not Observed g/dL (Not Observed); TOTAL PROTEIN SERUM 5.9 g/dL (6.0-8.5)
[2018-06-20 07:36] LABS: HEMATOCRIT. 31.7 % (42.0-52.0); HEMOGLOBIN. 10.5 g/dL (14.0-18.0); LYMPHOCYTES % 9.7 % (20.0-50.0); MEAN CORPUSCULAR HEMOGLOBIN 30.1 pg (28.0-32.0); MEAN CORPUSCULAR VOLUME 91.2 fL (80.0-94.0); MEAN PLATELET VOLUME 8.9 fl (7.4-10.4); MONOCYTES % 4.2 % (2.0-8.0); NEUTROPHILS % 86.1 % (40.0-76.0); PLATELET 182 x1000/uL (130-400); RED BLOOD CELL COUNT 3.48 mill/uL (4.7-6.1); RED CELL DISTRIBUTION WIDTH 17.1 % (11.6-14.6)
[2018-06-20 08:00] VITALS: BP 122/64
[2018-06-20] MEDS: ASPIRIN 81MG TABLET PO SCH (09:46)
[2018-06-20] MEDS: FAMOTIDINE 20MG TABLET PO SCH (09:47)
[2018-06-20] MEDS: TAMSULOSIN HCL 0.4MG SR CAPSULE PO SCH (09:47)
[2018-06-20] MEDS: METHYLPREDNISOLONE SOD SUCC 40 MG/ML VIAL IV SCH ×2 (09:48→21:10)
[2018-06-20] MEDS: ENOXAPARIN 40MG/0.4ML SYR SUBCUT SCH (09:49)
[2018-06-20] MEDS: GABAPENTIN 400MG CAPSULE PO SCH ×3 (09:51→21:03)
[2018-06-20] MEDS: DEXT 5%/0.45% NACL 1000ML 1,000 ML IV SCH (12:15)
[2018-06-20 12:27] VITALS: BP 135/60
[2018-06-20] MEDS: CLONIDINE 0.1MG TABLET PO SCH ×2 (14:48→21:03)
[2018-06-20 16:24] VITALS: BP 135/56
[2018-06-20 20:00] VITALS: BP 130/63
[2018-06-20] MEDS: ACETAMINOPHEN 325MG TABLET PO PRN (21:03)
[2018-06-21] VITALS: BP 136/66
[2018-06-21] MEDS: DILTIAZEM HCL 60MG TABLET PO SCH ×4 (00:06→18:00)
[2018-06-21] MEDS: DEXT 5%/0.45% NACL 1000ML 1,000 ML IV SCH ×2 (00:06→08:15)
[2018-06-21] MEDS: IPRATROPIUM/ALBUTEROL 0.5-3(2.5)MG/3ML NEB HHN SCH ×6 (00:06→20:31)
[2018-06-21 04:00] VITALS: BP 132/56
[2018-06-21] MEDS: GABAPENTIN 400MG CAPSULE PO SCH ×3 (05:57→21:17)
[2018-06-21] MEDS: CLONIDINE 0.1MG TABLET PO SCH ×3 (05:58→21:18)
[2018-06-21 08:00] VITALS: BP 123/57
[2018-06-21] MEDS: FAMOTIDINE 20MG TABLET PO SCH (10:19)
[2018-06-21] MEDS: ASPIRIN 81MG TABLET PO SCH (10:19)
[2018-06-21] MEDS: ENOXAPARIN 40MG/0.4ML SYR SUBCUT SCH (10:20)
[2018-06-21] MEDS: TAMSULOSIN HCL 0.4MG SR CAPSULE PO SCH (10:20)
[2018-06-21] MEDS: METHYLPREDNISOLONE SOD SUCC 40 MG/ML VIAL IV SCH (10:20)
[2018-06-21] MEDS: ACETAMINOPHEN 325MG TABLET PO PRN (10:21)
[2018-06-21 11:05] LABS: BASOPHILS % 0.1 % (0.0-2.0); HEMATOCRIT. 31.8 % (42.0-52.0); HEMOGLOBIN. 10.4 g/dL (14.0-18.0); LYMPHOCYTES % 7.7 % (20.0-50.0); MEAN CORPUSCULAR HEMOGLOBIN 30.1 pg (28.0-32.0); MEAN CORPUSCULAR VOLUME 91.7 fL (80.0-94.0); MEAN PLATELET VOLUME 8.5 fl (7.4-10.4); MONOCYTES % 6.9 % (2.0-8.0); NEUTROPHILS % 85.3 % (40.0-76.0); PLATELET 187 x1000/uL (130-400); RED BLOOD CELL COUNT 3.46 mill/uL (4.7-6.1); RED CELL DISTRIBUTION WIDTH 16.6 % (11.6-14.6)
[2018-06-21 12:00] VITALS: BP 123/58
[2018-06-21 12:50] LABS: PHOSPHORUS 4.7 mg/dL (2.5-4.9)
[2018-06-21 16:00] VITALS: BP 118/67
[2018-06-21 20:00] VITALS: BP 137/62
[2018-06-22] VITALS: BP 99/60
[2018-06-22] MEDS: DILTIAZEM HCL 60MG TABLET PO SCH ×4 (01:40→16:55)
[2018-06-22] MEDS: DEXT 5%/0.45% NACL 1000ML 1,000 ML IV SCH ×2 (03:29→15:10)
[2018-06-22 04:00] VITALS: BP 137/63
[2018-06-22] MEDS: IPRATROPIUM/ALBUTEROL 0.5-3(2.5)MG/3ML NEB HHN SCH ×6 (04:00→21:13)
[2018-06-22] MEDS: GABAPENTIN 400MG CAPSULE PO SCH ×2 (06:11→15:06)
[2018-06-22] MEDS: CLONIDINE 0.1MG TABLET PO SCH ×2 (06:12→15:06)
[2018-06-22 08:00] VITALS: BP 143/68
[2018-06-22 08:31] LABS: HEMATOCRIT. 30.9 % (42.0-52.0); HEMOGLOBIN. 10.2 g/dL (14.0-18.0); LYMPHOCYTES % 10.9 % (20.0-50.0); MEAN CORPUSCULAR HEMOGLOBIN 30.1 pg (28.0-32.0); MEAN CORPUSCULAR VOLUME 91.1 fL (80.0-94.0); MEAN PLATELET VOLUME 8.4 fl (7.4-10.4); NEUTROPHILS % 80.1 % (40.0-76.0); PLATELET 184 x1000/uL (130-400); RED BLOOD CELL COUNT 3.39 mill/uL (4.7-6.1); RED CELL DISTRIBUTION WIDTH 16.6 % (11.6-14.6)
[2018-06-22] MEDS: FAMOTIDINE 20MG TABLET PO SCH (09:44)
[2018-06-22] MEDS: TAMSULOSIN HCL 0.4MG SR CAPSULE PO SCH (09:44)
[2018-06-22] MEDS: ENOXAPARIN 40MG/0.4ML SYR SUBCUT SCH (09:45)
[2018-06-22] MEDS: ASPIRIN 81MG TABLET PO SCH (09:52)
[2018-06-22] MEDS: PREDNISONE 10MG TABLET PO SCH (09:52)
[2018-06-22 11:28] LABS: PHOSPHORUS 4.2 mg/dL (2.5-4.9)
[2018-06-22 12:00] VITALS: BP 136/67
[2018-06-22 16:00] VITALS: BP 140/70
[2018-06-22] MEDS: ACETAMINOPHEN 325MG TABLET PO PRN (18:23)
[2018-06-22 20:00] VITALS: BP 150/67
[2018-06-22] MEDS: GABAPENTIN 300MG CAPSULE PO SCH (21:08)
[2018-06-23] VITALS: BP 128/62
[2018-06-23] MEDS: IPRATROPIUM/ALBUTEROL 0.5-3(2.5)MG/3ML NEB HHN SCH ×6 (00:45→20:55)
[2018-06-23] MEDS: DILTIAZEM HCL 60MG TABLET PO SCH ×4 (00:46→19:05)
[2018-06-23] MEDS: ACETAMINOPHEN 325MG TABLET PO PRN ×2 (02:59→09:41)
[2018-06-23 04:00] VITALS: BP 141/70
[2018-06-23] MEDS: DEXT 5%/0.45% NACL 1000ML 1,000 ML IV SCH (06:15)
[2018-06-23 08:00] VITALS: BP 142/64
[2018-06-23] MEDS: ENOXAPARIN 40MG/0.4ML SYR SUBCUT SCH ×2 (09:00→09:40)
[2018-06-23] MEDS: PREDNISONE 10MG TABLET PO SCH (09:40)
[2018-06-23] MEDS: ASPIRIN 81MG TABLET PO SCH (09:40)
[2018-06-23] MEDS: FAMOTIDINE 20MG TABLET PO SCH (09:40)
[2018-06-23] MEDS: TAMSULOSIN HCL 0.4MG SR CAPSULE PO SCH (09:41)
[2018-06-23] MEDS ORDERED: GABAPENTIN 300MG CAPSULE PO SCH (10:30)
[2018-06-23 12:00] VITALS: BP 160/60
[2018-06-23 16:00] VITALS: BP 155/59
[2018-06-23 20:00] VITALS: BP 162/70
[2018-06-23] MEDS ORDERED: MAGNESIUM HYDROXIDE 400MG/5ML 30ML UDC PO NR ×2 (20:30→22:30)
[2018-06-23] MEDS: GABAPENTIN 300MG CAPSULE PO SCH (22:35)
[2018-06-24] VITALS: BP 144/71
[2018-06-24] MEDS: DEXT 5%/0.45% NACL 1000ML 1,000 ML IV SCH ×2 (00:34→09:38)
[2018-06-24] MEDS: IPRATROPIUM/ALBUTEROL 0.5-3(2.5)MG/3ML NEB HHN SCH ×5 (00:52→15:50)
[2018-06-24 04:00] VITALS: BP 159/59
[2018-06-24] MEDS: DILTIAZEM HCL 60MG TABLET PO SCH ×4 (06:54→17:32)
[2018-06-24 08:00] VITALS: BP 119/62
[2018-06-24] MEDS: PREDNISONE 10MG TABLET PO SCH (08:59)
[2018-06-24] MEDS: TAMSULOSIN HCL 0.4MG SR CAPSULE PO SCH (08:59)
[2018-06-24] MEDS: ASPIRIN 81MG TABLET PO SCH (08:59)
[2018-06-24] MEDS: FAMOTIDINE 20MG TABLET PO SCH (08:59)
[2018-06-24] MEDS: ENOXAPARIN 40MG/0.4ML SYR SUBCUT SCH (09:00)
[2018-06-24] MEDS ORDERED: GABAPENTIN 300MG CAPSULE PO NR (12:00)
[2018-06-24 12:19] VITALS: BP 162/67
[2018-06-24 16:24] VITALS: BP 161/65
[2018-06-24 18:13] VITALS: BP 161/65
== END 2018-06-24 20:00 | disposition home health service (06) | DRG 291 ==
LOC: ER 12:30 → 5WST 16:48 → CANRESERV 19:58 → ENRESERV 19:58
PROVIDERS: ADMIT Internal Medicine; ATTEND Internal Medicine
PROC: 02HV33Z Insertion of Infusion Device into Superior Vena Cava, Percutaneous Approach (ICD-10-PCS; principal; 2018-06-19)
PROC: B5181ZA Fluoroscopy of Superior Vena Cava using Low Osmolar Contrast, Guidance (ICD-10-PCS; 2018-06-19)
PROC: B548ZZA Ultrasonography of Superior Vena Cava, Guidance (ICD-10-PCS; 2018-06-19)
DX: I13.0 Hypertensive heart and chronic kidney disease with heart failure and stage 1 through stage 4 chronic kidney disease, or unspecified chronic kidney disease (principal); I50.33 Acute on chronic diastolic (congestive) heart failure; J44.1 Chronic obstructive pulmonary disease with (acute) exacerbation; E87.0 Hyperosmolality and hypernatremia; E46 Unspecified protein-calorie malnutrition; N17.9 Acute kidney failure, unspecified; I43 Cardiomyopathy in diseases classified elsewhere; M19.90 Unspecified osteoarthritis, unspecified site; D63.8 Anemia in other chronic diseases classified elsewhere; F41.9 Anxiety disorder, unspecified; E78.00 Pure hypercholesterolemia, unspecified; G89.29 Other chronic pain; E87.5 Hyperkalemia; G62.9 Polyneuropathy, unspecified; I25.10 Atherosclerotic heart disease of native coronary artery without angina pectoris; N18.3 Chronic kidney disease, stage 3 (moderate); N20.0 Calculus of kidney; N40.1 Benign prostatic hyperplasia with lower urinary tract symptoms; T38.0X5A Adverse effect of glucocorticoids and synthetic analogues, initial encounter; M54.5 Low back pain; I49.1 Atrial premature depolarization; I49.9 Cardiac arrhythmia, unspecified; N41.1 Chronic prostatitis; X58.XXXA Exposure to other specified factors, initial encounter; Z87.440 Personal history of urinary (tract) infections; Z99.81 Dependence on supplemental oxygen; Z87.891 Personal history of nicotine dependence; Y93.89 Activity, other specified; Y92.89 Other specified places as the place of occurrence of the external cause; Y99.8 Other external cause status; Z68.28 Body mass index [BMI] 28.0-28.9, adult
CPT/HCPCS: 36415; 36569; 71045; 71250; 76770; 76937; 77001; 80048; 82040; 82570; 83735; 83880; 84100; 84132; 84133; 84153; 84155; 84165; 84300; 84484; 85651; 86335; 93005; 93306; 94640; 94644; 97116; 97162; 99285; C1725; C1893; J1650; J2920; J3490; J7040; J7050; J7512; J7611; J7620; A4315; G0103

== ENCOUNTER 2018-08-24 21:55 | Emergency (ER) | payer MEDICARE, MEDICAID ==
[~2018-08-24] VITALS: Ht 172.7 cm; Wt 75.0 kg
[2018-08-24 23:59] LABS: CLARITY URINE CLOUDY (CLEAR); COLOR URINE YELLOW (YELLOW); KETONES URINE NEGATIVE (NEGATIVE); LEUKOCYTE ESTERASE URINE 2+ (NEGATIVE); NITRITE URINE NEGATIVE (NEGATIVE); OCCULT BLOOD URINE 3+ (NEGATIVE); PH URINE 5.5 (4.5-8.0); PROTEIN URINE 2+ (NEGATIVE); SPECIFIC GRAVITY URINE 1.014 (1.005-1.030)
[2018-08-25 00:20] LABS: BASOPHILS % 0.4 % (0.0-2.0); EOSINOPHILS % 1.4 % (0.0-5.0); HEMATOCRIT. 32.2 % (42.0-52.0); HEMOGLOBIN. 10.7 g/dL (14.0-18.0); MEAN CORPUSCULAR HEMOGLOBIN 29.7 pg (28.0-32.0); MEAN CORPUSCULAR VOLUME 89.7 fL (80.0-94.0); MEAN PLATELET VOLUME 7.5 fl (7.4-10.4); MONOCYTES % 7.7 % (2.0-8.0); NEUTROPHILS % 73.5 % (40.0-76.0); PLATELET 294 x1000/uL (130-400); RED BLOOD CELL COUNT 3.59 mill/uL (4.7-6.1); RED CELL DISTRIBUTION WIDTH 17.3 % (11.6-14.6)
[2018-08-25 00:21] LABS: CHLORIDE 104 mEq/L (98-107)
[2018-08-25 01:30] VITALS: BP 137/72
== END 2018-08-25 01:31 | disposition home or self-care (01) ==
LOC: ER 21:55
DX: B37.49 Other urogenital candidiasis (principal); I10 Essential (primary) hypertension; Z87.440 Personal history of urinary (tract) infections; J44.9 Chronic obstructive pulmonary disease, unspecified; Z87.891 Personal history of nicotine dependence; Z79.899 Other long term (current) drug therapy
CPT/HCPCS: 36415; 71045; 84484; 87106; 93005; 99284

== ENCOUNTER 2018-10-28 04:43 | Emergency (ER) | payer MEDICARE, MEDICAID ==
[~2018-10-28] VITALS: Ht 185.4 cm; Wt 73.0 kg
[2018-10-28] MEDS ORDERED: ALBUTEROL (0.083%) 2.5MG/3ML NEB HHN STA (06:24)
[2018-10-28] MEDS ORDERED: IPRATROPIUM BROMIDE (0.02%) 0.5MG/2.5ML NEB HHN STA (06:24)
[2018-10-28] MEDS ORDERED: METHYLPREDNISOLONE SOD SUCC 125 MG/2 ML VIAL IV STA (06:24)
[2018-10-28] MEDS ORDERED: KETOROLAC 30MG/ML VIAL IV ONE (06:30)
[2018-10-28] MEDS ORDERED: TRAMADOL 50MG TABLET PO ONE (07:30)
[2018-10-28 08:33] LABS: COLOR URINE YELLOW (YELLOW); KETONES URINE NEGATIVE (NEGATIVE); LEUKOCYTE ESTERASE URINE 3+ (NEGATIVE); NITRITE URINE NEGATIVE (NEGATIVE); OCCULT BLOOD URINE TRACE (NEGATIVE); PROTEIN URINE 1+ (NEGATIVE); SPECIFIC GRAVITY URINE 1.011 (1.005-1.030)
[2018-10-28 08:35] LABS: CLARITY URINE HAZY (CLEAR)
[2018-10-28] MEDS ORDERED: CEFTRIAXONE 1 G PREMIX 50 ML IV ONE (09:00)
[2018-10-28 19:20] VITALS: BP 137/75
== END 2018-10-28 19:31 | disposition home or self-care (01) ==
LOC: ER 04:43
DX: N39.0 Urinary tract infection, site not specified (principal); J43.9 Emphysema, unspecified; I10 Essential (primary) hypertension
CPT/HCPCS: 71045; 81003; 87077; 87086; 94644; 96365; 96375; 99285; J0696; J1885; J2930; J7611

== ENCOUNTER 2019-08-23 13:06 | Emergency (ER) | payer MEDICARE, MEDICAID ==
[~2019-08-23] VITALS: Ht 170.2 cm; Wt 68.5 kg
[~2019-08-23 13:06] MED LIST changes: -ALBU6.7H INH; +ALBU6.7H11 INH
[2019-08-23] MEDS ORDERED: GABA-531 PO (13:20)
[2019-08-23] MEDS ORDERED: METO-539 PO (13:20)
[2019-08-23] MEDS ORDERED: ACETAMINOPHEN WITH CODEINE 300/30MG TABLET PO ONE (13:45)
[2019-08-23 17:45] VITALS: BP 143/67
== END 2019-08-23 17:45 | disposition home or self-care (01) ==
LOC: ER 13:06
DX: M25.551 Pain in right hip (principal); I10 Essential (primary) hypertension; J44.9 Chronic obstructive pulmonary disease, unspecified; Z79.899 Other long term (current) drug therapy; Z79.51 Long term (current) use of inhaled steroids
CPT/HCPCS: 73502; 93971; 99284

== ENCOUNTER → 2020-01-09 | Outpatient (CLI) | payer MEDICARE, MEDICAID ==
[~2020-01-09] MED LIST changes: +GABA-531 PO; +METO-539 PO
[2020-01-09 12:39] LABS: CHLORIDE 100 mEq/L (98-107)
[2020-01-09 12:44] LABS: EOSINOPHILS % 2.3 % (0.0-5.0); HEMATOCRIT. 33.7 % (42.0-52.0); HEMOGLOBIN. 11.1 g/dL (14.0-18.0); LYMPHOCYTES % 49.4 % (20.0-50.0); MEAN CORPUSCULAR HEMOGLOBIN 29.7 pg (28.0-32.0); MONOCYTES % 5.1 % (2.0-8.0); NEUTROPHILS % 42.2 % (40.0-76.0); RED BLOOD CELL COUNT 3.75 mill/uL (4.7-6.1); RED CELL DISTRIBUTION WIDTH 16.1 % (11.6-14.6)
[2020-01-09 12:47] LABS: LDL CHOLESTEROL 60 mg/dL (5-100)
[2020-01-09 12:48] LABS: HDL CHOLESTEROL 57 mg/dL (40-59)
[2020-01-09 13:08] LABS: MEAN PLATELET VOLUME 8.3 fl (7.4-10.4); PLATELET 164 x1000/uL (130-400)
[2020-01-09 14:34] LABS: VITAMIN B12 SERUM 1770 pg/mL (211-911)
== END | disposition home or self-care (01) ==
LOC: LAB 12-26 09:57
PROVIDERS: ATTEND Specialist
DX: I11.0 Hypertensive heart disease with heart failure (principal); E78.2 Mixed hyperlipidemia; E05.90 Thyrotoxicosis, unspecified without thyrotoxic crisis or storm; R53.83 Other fatigue; E11.9 Type 2 diabetes mellitus without complications; R53.82 Chronic fatigue, unspecified; I50.9 Heart failure, unspecified
CPT/HCPCS: 36415; 80053; 80061; 82607; 83036; 83880; 84439; 84443; 84481; 85025

== ENCOUNTER → 2020-07-08 | Outpatient (CLI) | payer MEDICARE, MEDICAID ==
[~2020-07-08] MED LIST changes: -GABA-531 PO; +GABA-532 PO
[2020-07-08 11:27] LABS: CHLORIDE 101 mEq/L (98-107)
[2020-07-08 11:31] LABS: BASOPHILS % 0.9 % (0.0-2.0); EOSINOPHILS % 1.5 % (0.0-5.0); HEMATOCRIT. 37.5 % (42.0-52.0); HEMOGLOBIN. 12.5 g/dL (14.0-18.0); MEAN CORPUSCULAR HEMOGLOBIN 30.4 pg (28.0-32.0); MEAN CORPUSCULAR VOLUME 91.3 fL (80.0-94.0); MONOCYTES % 7.4 % (2.0-8.0); NEUTROPHILS % 30.2 % (40.0-76.0)
[2020-07-08 13:09] LABS: PLATELET 191 x1000/uL (130-400); PLATELET ESTIMATE NORMAL
== END | disposition home or self-care (01) ==
LOC: LAB 10:36
PROVIDERS: ATTEND Specialist
DX: E78.2 Mixed hyperlipidemia (principal); E55.9 Vitamin D deficiency, unspecified; D64.9 Anemia, unspecified; E11.9 Type 2 diabetes mellitus without complications
CPT/HCPCS: 36415; 80053; 80061; 82306; 83036; 84443; 85025

== ENCOUNTER 2020-09-12 01:50 | Emergency (ER) | payer MEDICARE, MEDICAID ==
[~2020-09-12] VITALS: Ht 177.8 cm; Wt 68.0 kg
[2020-09-12] MEDS ORDERED: OXYBUTYNIN CHLORIDE 5MG TABLET PO ONE (02:15)
[2020-09-12] MEDS ORDERED: ACETAMINOPHEN 325MG TABLET PO ONE (02:15)
[2020-09-12 02:43] LABS: BASOPHILS % 0.9 % (0.0-2.0); EOSINOPHILS % 1.9 % (0.0-5.0); HEMATOCRIT. 34.1 % (42.0-52.0); HEMOGLOBIN. 11.1 g/dL (14.0-18.0); LYMPHOCYTES % 41.5 % (20.0-50.0); MEAN CORPUSCULAR HEMOGLOBIN 29.8 pg (28.0-32.0); MEAN CORPUSCULAR VOLUME 91.2 fL (80.0-94.0); MONOCYTES % 11.6 % (2.0-8.0); NEUTROPHILS % 44.1 % (40.0-76.0); RED BLOOD CELL COUNT 3.74 mill/uL (4.7-6.1)
[2020-09-12 02:48] LABS: CHLORIDE 98 mEq/L (98-107)
[2020-09-12 03:04] LABS: MEAN PLATELET VOLUME 8.9 fl (7.4-10.4); PLATELET 120 x1000/uL (130-400)
[2020-09-12 03:12] LABS: CLARITY URINE CLEAR (CLEAR); COLOR URINE YELLOW (YELLOW); KETONES URINE NEGATIVE (NEGATIVE); LEUKOCYTE ESTERASE URINE 3+ (NEGATIVE); NITRITE URINE NEGATIVE (NEGATIVE); OCCULT BLOOD URINE 3+ (NEGATIVE); PROTEIN URINE NEGATIVE (NEGATIVE); SPECIFIC GRAVITY URINE 1.004 (1.005-1.030); UROBILINOGEN URINE 0.2 E.U./dL (0.2-1.0)
[2020-09-12] MEDS ORDERED: OXYB5TAB17 MT (03:57)
[2020-09-12] MEDS ORDERED: CEPH500C2 MT (03:57)
[2020-09-12] MEDS ORDERED: CEPHALEXIN 250MG CAPSULE PO NR (04:00)
[2020-09-12 06:51] VITALS: BP 156/68
== END 2020-09-12 06:55 | disposition home or self-care (01) ==
LOC: ER 01:50
DX: N39.0 Urinary tract infection, site not specified (principal); N32.89 Other specified disorders of bladder; J44.9 Chronic obstructive pulmonary disease, unspecified; I10 Essential (primary) hypertension; Z98.890 Other specified postprocedural states; F17.290 Nicotine dependence, other tobacco product, uncomplicated; Z79.899 Other long term (current) drug therapy
CPT/HCPCS: 36415; 80048; 81003; 85025; 99285